=== PATIENT | female | born 1935 | race African-American/Black ===

== ENCOUNTER 2021-01-28 13:28 | Emergency (ER) | payer OTHER ==
[~2021-01-28] VITALS: Ht 157.5 cm; Wt 64.0 kg
[~2021-01-28 13:28] MED LIST: ALBU6.7H9 IH; ATROVUD IH; AZIT250T12 PO; BECL8.7A6 IH; FLUT1DIS3 IH; GLIP10TA10 PO; INSU100V3 SUBCUT; INSULIN; LISINOPRIL; METFORMIN; METH8TAB5 PO; MONT10TA21 PO; P20 PO; PROIN3 IH
[2021-01-28 14:10] LABS: BASOPHILS % 0.5 % (0.0-2.0); EOSINOPHILS % 1.1 % (0.0-5.0); HEMATOCRIT. 25.3 % (36.0-48.0); HEMOGLOBIN. 8.6 g/dL (12.0-16.0); LYMPHOCYTES % 25.7 % (20.0-50.0); MEAN CORPUSCULAR HEMOGLOBIN 32.6 pg (28.0-32.0); MEAN CORPUSCULAR VOLUME 96.1 fL (81.0-99.0); MEAN PLATELET VOLUME 9.5 fl (7.4-10.4); MONOCYTES % 8.2 % (2.0-8.0); NEUTROPHILS % 64.5 % (40.0-76.0); PLATELET 277 x1000/uL (130-400); RED BLOOD CELL COUNT 2.63 mill/uL (4.2-5.4); RED CELL DISTRIBUTION WIDTH 17.5 % (11.6-14.6)
[2021-01-28 14:19] LABS: PROTHROMBIN TIME 10.5 sec (9.6-11.0)
[2021-01-28 14:21] LABS: CHLORIDE 106 mEq/L (98-107)
[2021-01-28 14:27] LABS: ETHANOL BLOOD < 10 mg/dL
[2021-01-28 14:29] LABS: LDL CHOLESTEROL 45 mg/dL (5-100)
[2021-01-28] MEDS ORDERED: IOHEXOL 350 MG/ML 200ML INFUS..BTL IV ONE (15:09)
[2021-01-28] MEDS ORDERED: OLANZAPINE 10 MG/VIAL IM ONE (17:15)
[2021-01-28 17:42] LABS: CLARITY URINE CLEAR (CLEAR); COLOR URINE YELLOW (YELLOW); KETONES URINE NEGATIVE (NEGATIVE); LEUKOCYTE ESTERASE URINE NEGATIVE (NEGATIVE); NITRITE URINE NEGATIVE (NEGATIVE); OCCULT BLOOD URINE NEGATIVE (NEGATIVE); PROTEIN URINE NEGATIVE (NEGATIVE); SPECIFIC GRAVITY URINE 1.019 (1.005-1.030); UROBILINOGEN URINE 0.2 E.U./dL (0.2-1.0)
[2021-01-28] MEDS ORDERED: AZITHROMYCIN 500 MG in DEXT 5% WATER 250 ML IV NR (18:15)
[2021-01-28] MEDS ORDERED: CEFTRIAXONE 1 G PREMIX 50 ML IV NR (18:15)
[2021-01-28 18:24] LABS: *AMPHETAMINES SCREEN URINE NEGATIVE (NEGATIVE); *BARBITURATES SCREEN URINE NEGATIVE (NEGATIVE); *BENZODIAZEPINES SCREEN URINE NEGATIVE (NEGATIVE); *COCAINE SCREEN URINE NEGATIVE (NEGATIVE); CANNABINOID URINE SCREEN NEGATIVE (NEGATIVE); METHADONE URINE SCREEN NEGATIVE (NEGATIVE); OPIATES URINE SCREEN NEGATIVE (NEGATIVE); PHENCYCLIDINE URINE SCREEN NEGATIVE (NEGATIVE)
[2021-01-28 20:32] VITALS: BP 105/61
== END 2021-01-28 20:49 | disposition short-term general hospital (02) ==
LOC: ER 13:28 → CANBEDREQ 21:49
DX: J18.9 Pneumonia, unspecified organism (principal); R41.82 Altered mental status, unspecified; E11.9 Type 2 diabetes mellitus without complications; I10 Essential (primary) hypertension; E78.00 Pure hypercholesterolemia, unspecified; Z20.822 Contact with and (suspected) exposure to COVID-19; Z79.4 Long term (current) use of insulin
CPT/HCPCS: 36415; 70450; 70496; 71045; 80053; 80305; 80320; 81003; 82962; 83605; 83721; 83880; 84484; 85025; 85610; 87040; 87086; 93005; 96365; 96368; 96372; 99285; C9803; J0456; J0696; J3490; J7060; Q9967; U0003; G0480

== ENCOUNTER 2021-02-04 22:26 | Inpatient (IN) | payer OTHER ==
[~2021-02-04] VITALS: Ht 165.1 cm; Wt 73.9 kg
[2021-02-04] MEDS ORDERED: CEFTRIAXONE 1 G PREMIX 50 ML IV ONE (23:45)
[2021-02-04] MEDS ORDERED: SODIUM CHLORIDE 0.9% 1,000 ML IV ONE (23:45)
[2021-02-05] VITALS (9 sets, daily range): BP systolic 144–171; BP diastolic 58–98
[2021-02-05 00:48] LABS: BASOPHILS % 0.8 % (0.0-2.0); EOSINOPHILS % 2.7 % (0.0-5.0); HEMOGLOBIN. 10.3 g/dL (12.0-16.0); LYMPHOCYTES % 36.7 % (20.0-50.0); MEAN CORPUSCULAR HEMOGLOBIN 30.1 pg (28.0-32.0); MEAN CORPUSCULAR VOLUME 93.7 fL (81.0-99.0); MEAN PLATELET VOLUME 9.5 fl (7.4-10.4); MONOCYTES % 5.9 % (2.0-8.0); NEUTROPHILS % 53.9 % (40.0-76.0); PLATELET 187 x1000/uL (130-400); RED BLOOD CELL COUNT 3.41 mill/uL (4.2-5.4); RED CELL DISTRIBUTION WIDTH 17.2 % (11.6-14.6)
[2021-02-05 00:54] LABS: CHLORIDE 109 mEq/L (98-107)
[2021-02-05 01:02] LABS: CLARITY URINE CLEAR (CLEAR); COLOR URINE YELLOW (YELLOW); KETONES URINE NEGATIVE (NEGATIVE); LEUKOCYTE ESTERASE URINE NEGATIVE (NEGATIVE); NITRITE URINE NEGATIVE (NEGATIVE); OCCULT BLOOD URINE NEGATIVE (NEGATIVE); PH URINE 5.5 (4.5-8.0); PROTEIN URINE 1+ (NEGATIVE); SPECIFIC GRAVITY URINE 1.023 (1.005-1.030)
[2021-02-05 01:56] LABS: PROTHROMBIN TIME 10.4 sec (9.6-11.0)
[2021-02-05] MEDS ORDERED: ASPIRIN 81MG EC TABLET PO SCH (11:30)
[2021-02-05] MEDS ORDERED: ACETAMINOPHEN 325MG TABLET PO PRN (12:30)
[2021-02-05] MEDS ORDERED: CLOPIDOGREL 75MG TABLET PO SCH (12:30)
[2021-02-05] MEDS ORDERED: ATENOLOL 25MG TABLET PO SCH (13:30)
[2021-02-05] MEDS ORDERED: AMLODIPINE 10MG TABLET PO SCH (13:30)
[2021-02-05] MEDS ORDERED: AMLO10TA4 MT (14:53)
[2021-02-05] MEDS ORDERED: ATEN-42 MT (14:54)
[2021-02-05] MEDS ORDERED: ASPI-1497 MT (14:55)
[2021-02-05] MEDS ORDERED: LEVO25CA4 PO (14:58)
[2021-02-05] MEDS ORDERED: LOVA40TA73 PO (14:59)
[2021-02-05 17:18] LABS: BASOPHILS % 0.9 % (0.0-2.0); HEMATOCRIT. 29.1 % (36.0-48.0); HEMOGLOBIN. 9.6 g/dL (12.0-16.0); MEAN CORPUSCULAR HEMOGLOBIN 30.3 pg (28.0-32.0); MEAN PLATELET VOLUME 9.6 fl (7.4-10.4); NEUTROPHILS % 56.1 % (40.0-76.0); PLATELET 171 x1000/uL (130-400); RED BLOOD CELL COUNT 3.16 mill/uL (4.2-5.4); RED CELL DISTRIBUTION WIDTH 16.6 % (11.6-14.6)
[2021-02-05 17:25] LABS: CHLORIDE 109 mEq/L (98-107)
[2021-02-05] MEDS ORDERED: HEPARIN 5000 UNITS/ML VIAL SUBCUT SCH (21:00)
[2021-02-05] MEDS ORDERED: AMLODIPINE 5MG TABLET PO SCH (21:00)
== END 2021-02-05 20:57 | disposition short-term general hospital (02) | DRG 64 ==
LOC: ER 22:26 → 5EST 02-05 03:05 → EDBEDREQ 02-05 03:18 → EDBEDREQTM 02-05 03:18 → EDBEDREQSVC 02-05 03:18 → ENRESERV 02-05 07:43
PROVIDERS: ADMIT Internal Medicine; ATTEND Internal Medicine
DX: I63.9 Cerebral infarction, unspecified (principal); G93.41 Metabolic encephalopathy; I21.4 Non-ST elevation (NSTEMI) myocardial infarction; E44.0 Moderate protein-calorie malnutrition; E87.2 Acidosis; R65.10 Systemic inflammatory response syndrome (SIRS) of non-infectious origin without acute organ dysfunction; I69.351 Hemiplegia and hemiparesis following cerebral infarction affecting right dominant side; Z68.1 Body mass index [BMI] 19.9 or less, adult; D64.9 Anemia, unspecified; I11.9 Hypertensive heart disease without heart failure; E11.65 Type 2 diabetes mellitus with hyperglycemia; F03.90 Unspecified dementia, unspecified severity, without behavioral disturbance, psychotic disturbance, mood disturbance, and anxiety; Z20.822 Contact with and (suspected) exposure to COVID-19; I16.0 Hypertensive urgency; I27.20 Pulmonary hypertension, unspecified; I34.0 Nonrheumatic mitral (valve) insufficiency; Z79.4 Long term (current) use of insulin; Z87.01 Personal history of pneumonia (recurrent); Z79.51 Long term (current) use of inhaled steroids; Z79.899 Other long term (current) drug therapy; Z88.1 Allergy status to other antibiotic agents
CPT/HCPCS: 36415; 71045; 80048; 80053; 80061; 81003; 83036; 83605; 83735; 84145; 84484; 85025; 87426; 92610; 93005; 93306; 93880; 96365; 99291; C1893; J0696; J7030